=== PATIENT | female | born 1960 | race Hispanic/Latino ===

== ENCOUNTER 2019-09-10 21:34 | Emergency (ER) | payer BC ==
[~2019-09-10] VITALS: Ht 157.5 cm; Wt 75.7 kg
[~2019-09-10 21:34] MED LIST: TAPAZOLE5 MG PO
--- NOTE | 2019-09-11 03:49 | Emergency Department Note ---
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 Patient admits to being context coworkers. Positive for Covid 19.. 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 Any updates have been documented here. Past Medical History Recent Fever: No Clinical Suspicion of Infectio: No New/Unexplained Change in Ment: No Past Medical History: Hyperlipedemia Past Surgical History: None Family History Family history of heart diseas: No Other Last Tetanus: UNK Physical Exam Related Data Allergies: Coded Allergies: No Known Allergies (Unverified , 12/27/15) Triage Vital Signs Vital Signs Date Time Temp Pulse Resp B/P (MAP) Pulse Ox O2 Delivery O2 Flow Rate FiO2 09/10/19 22:20 97.6 74 16 146/87 98 Vital signs reviewed: Yes Physical Exam CONSTITUTIONAL Constitutional: Present well-developed, Present well-nourished HENT HENT: Present normocephalic, Present atraumatic, Present oropharynx clear/moist, Present nose normal HENT L/R: Present left ext ear normal, Present right ext ear normal EYES Eyes: Reports PERRL, Reports conjunctivae normal NECK Neck: Present ROM normal PULMONARY Pulmonary: Present effort normal, Present breath sounds normal CARDIOVASCULAR Cardiovascular: Present regular rhythm, Present heart sounds normal, Present capillary refill normal, Present normal rate GASTROINTESTINAL Abdominal: Present soft, Present nontender, Present bowel sounds normal GENITOURINARY Genitourinary: Present exam deferred SKIN Skin: Present warm, Present dry MUSCULOSKELETAL Musculoskeletal: Present ROM normal NEUROLOGICAL Neurological: Present alert, Present oriented x 3, Present no gross motor or sensory deficits PSYCHOLOGICAL Psychological: Present mood/affect normal, Present judgement normal Assessment & Plan Medical Decision Making MDM 59-year-old well-appearing female arrived to the ED with complaints of inability to smell and taste. Patient's oxygen saturation 100%, no evidence of tachypnea, no fever. Patient informed she is "positive until proven otherwise given her complaints and symptoms. Patient encouraged the outpatient Covid testing and continue to monitor her symptoms given her line of work. Patient expressed understanding stable for discharge home. Assessment & Plan Final Impression: (1) COVID-19 Depart Disposition: HOME, SELF-CARE Last Vital Signs Date Time Temp Pulse Resp B/P (MAP) Pulse Ox O2 Delivery O2 Flow Rate FiO2 09/10/19 22:20 97.6 74 16 146/87 98 Home Meds Reported Medications Methimazole (TAPAZOLE) 5 Mg Tablet, 1 TAB PO HS 12/27/15 ROHIT QUEVEDO DO Sep 11, 2019 03:49
== END 2019-09-10 22:35 | disposition home or self-care (01) ==
LOC: ER 21:34
DX: U07.1 COVID-19 (principal); R05 Cough; E78.5 Hyperlipidemia, unspecified

== ENCOUNTER → 2022-07-31 | Outpatient (CLI) | payer OTHER | LOC: MAMMO 14:36 | PROVIDERS: ATTEND Internal Medicine | DX: Z12.31 Encounter for screening mammogram for malignant neoplasm of breast (principal) | CPT/HCPCS: 77067 ==

== ENCOUNTER → 2024-09-02 | Outpatient (REF) | payer OTHER | LOC: MAMMO 08:44 | PROVIDERS: ATTEND Internal Medicine | DX: Z12.31 Encounter for screening mammogram for malignant neoplasm of breast (principal) | CPT/HCPCS: 77067 ==